=== PATIENT | female | born 1995 | race Caucasian/White ===

== ENCOUNTER → 2021-08-22 | Outpatient (CLI) | payer OTHER ==
--- NOTE | 2021-08-22 15:45 | PFTRPT ---
Site: [facility], [address] [place] [address], [address] ID: [id number] Name: MAYCOL HUBBARD Visit Date: 08/22/2021 Second ID: [id number] Referring Doctor: JERRICA Lopez, Cherelle Galeas Reviewing Doctor: Phil Madrigal MD Plasterer Foreman: Val CERVANTES RRT Age: 26 : 1995 Sex: Female Race: Black Height: 65.00 Inches Weight: 154.00 Lbs BSA: 1.77 Order IDs: [id number] Requested Test(s): <RESP-PFT.PFT B/A> Diagnosis: R06.00 test meet the ATS standards for acceptability and repeatability. Pt was given four puffs of albuterol for post bronchodilator. Review Status: Not Reviewed Pre-Bronch Post-Bronch Pred Actual %Pred Actual %Chng SPIROMETRY FVC (L) 3.35 3.04 90 3.03 FEV1 (L) 2.88 2.54 88 2.68 5 FEV1/FVC (%) 86 83 96 89 6 FEF 25% (L/sec) 5.87 6.35 108 6.12 -3 FEF 50% (L/sec) 4.58 3.19 69 4.23 32 FEF 75% (L/sec) 1.96 1.15 58 1.61 40 FEF 25-75% (L/sec) 3.38 2.65 78 3.39 27 FEF Max (L/sec) 7.05 6.65 94 6.32 -5 FIVC (L) 2.91 2.92 FIF 50% (L/sec) 4.13 2.85 68 3.21 12 FIF Max (L/sec) 3.04 3.47 14 MVV (L/min) 112 111 99 Expiratory Time (sec) 6.74 6.76 Back Extrap Vol (L) 0.11 0.08 -26 Time To FEFmax (sec) 0.086 0.084 -2 LUNG VOLUMES SVC (L) 3.82 3.01 78 IC (L) 2.35 2.49 105 ERV (L) 1.47 0.52 35 TGV (L) 2.85 1.87 65 RV (Pleth) (L) 1.38 1.35 97 TLC (Pleth) (L) 5.20 4.36 83 RV/TLC (Pleth) (%) 26 31 118 DIFFUSION DLCOunc (ml/min/mmHg) 25.66 17.29 67 DLCOcor (ml/min/mmHg) 25.66 17.40 67 DL/VA (ml/min/mmHg/L) 4.93 4.39 88 VA (L) 5.20 3.97 76 BHT (sec) 9.84 IVC (L) 2.97 TLC (SB) (L) 4.12 AIRWAYS RESISTANCE Raw (cmH2O/L/s) 1.86 0.87 46 Gaw (L/s/cmH2O) 1.03 1.15 111 sRaw (cmH2O*s) 4.76 1.53 32 sGaw (1/cmH2O*s) 0.20 0.66 330 BLOOD GASES Hgb (gm/dL) 13.2
== END ==
LOC: M CARPUL 14:46
PROVIDERS: ATTEND Physician Assistant
DX: R06.00 Dyspnea, unspecified (principal)

== ENCOUNTER → 2021-09-10 | Outpatient (CLI) | payer OTHER ==
[~2021-09-10] MED LIST: METHACHOLINE KIT (J7674) INH ONE
--- NOTE | 2021-09-10 15:44 | PFTRPT ---
Site: [facility], [address] [place], [address] ID: [id number] Name: MAYCOL HUBBARD Visit Date: 09/10/2021 Second ID: [id number] Referring Doctor: JERRICA Lopez, Cherelle Galeas Reviewing Doctor: Phil Madrigal MD Inspector Quality Assurance: Val CERVANTES RRT Age: 26 : 1995 Sex: Female Race: Black Height: 65.00 Inches Weight: 154.00 Lbs BSA: 1.77 Order IDs: [id number] Requested Test(s): <RESP-PFT.METH CHAL> Diagnosis: R06.00 of albuterol for post bronchodilator. Review Status: Not Reviewed Pre-Bronch Post-Bronch Pred Actual %Pred Actual %Chng SPIROMETRY FVC (L) 3.35 2.80 83 2.86 2 FEV1 (L) 2.88 2.41 83 2.43 FEV1/FVC (%) 86 86 100 85 -1 FEF 25% (L/sec) 5.87 5.74 97 5.05 -12 FEF 50% (L/sec) 4.58 3.15 68 3.49 10 FEF 75% (L/sec) 1.96 1.29 65 1.32 2 FEF 25-75% (L/sec) 3.38 2.68 79 2.74 2 FEF Max (L/sec) 7.05 6.15 87 5.24 -14 FIVC (L) 2.68 2.74 2 FIF 50% (L/sec) 4.13 3.07 74 0.76 -75 FIF Max (L/sec) 3.53 2.20 -37 Expiratory Time (sec) 6.87 6.11 -11 Back Extrap Vol (L) 0.09 0.09 -4 Time To FEFmax (sec) 0.084 0.095 12
== END ==
LOC: M CARPUL 14:31
PROVIDERS: ATTEND Physician Assistant
DX: R06.00 Dyspnea, unspecified (principal)

== ENCOUNTER → 2021-09-17 | Outpatient (CLI) | payer OTHER ==
[~2021-09-17] MED LIST changes: +ISOVUE-370 76% 100ML VIAL As Ordered ONE; -METHACHOLINE KIT (J7674) INH ONE
== END ==
LOC: M RAD 17:17
PROVIDERS: ATTEND Physician Assistant
DX: R94.2 Abnormal results of pulmonary function studies (principal); R06.00 Dyspnea, unspecified
CPT/HCPCS: 71275; Q9967

== ENCOUNTER 2021-10-06 01:15 | Emergency (ER) | payer OTHER ==
[~2021-10-06] VITALS: Ht 165.1 cm; Wt 70.0 kg
[2021-10-06 02:21] LABS: RSV AMPLIFICATION NEGATIVE (NEGATIVE)
[2021-10-06 07:43] VITALS: BP 115/71
== END 2021-10-06 08:40 | disposition home or self-care (01) ==
LOC: M ED 01:15
DX: U07.1 COVID-19 (principal)